=== PATIENT | male | born 1980 | race Caucasian/White ===

== ENCOUNTER 2019-12-17 13:39 | Observation (INO) | payer BC, OTHER ==
[2019-12-17] MEDS ORDERED: fentaNYL 100 MCG/2 ML SDV ONE ×2 (13:45→15:11)
[2019-12-17] MEDS ORDERED: fentaNYL 50 MCG/ML SDV IVPUSH ONE ×2 (13:46→14:29)
[2019-12-17] MEDS ORDERED: Diphtheria,Pertussis(Acell),Tetanus Vaccine 0.5 ML Syringe IM ONE ×2 (13:46→14:34)
[2019-12-17 14:15] LABS: BLOOD UREA NITROGEN,BUN 17 mg/dL (7.0-18.0); CARBON DIOXIDE,CO2 24.4 mmol/L (21.0-32.0); CHLORIDE,CL 104 mmol/L (98-107); GLUCOSE RANDOM 126 mg/dL (74-106); POTASSIUM,K 4.3 mmol/L (3.5-5.1); SODIUM,NA 140 mmol/L (136-148)
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
[2019-12-17] MEDS: Piperacillin/Tazobactam 3.375 GM in Sodium Chloride 0.9% 50 ML IV SCH ×2 (14:27→20:32)
--- NOTE | 2019-12-17 14:30 | CT ---
CT chest Technique: Multiple axial sections were obtained from above the lung apices inferiorly through the lung bases. Intravenous contrast was utilized. Comparison: No prior chest imaging is available. Findings: Mediastinum and hilar region show no adenopathy. No mediastinal hematoma is seen. No pericardial fluid is seen. No axillary adenopathy is seen. Lungs are clear with no acute pulmonary contusion. No pleural effusions or pneumothorax are seen. No acute osseous finding is appreciated. Impression: 1. Nothing acute is appreciated on CT study of the chest. Diagnostic code #1 This report was dictated in MDT
[2019-12-17] MEDS ORDERED: Diphtheria,Pertussis(Acell),Tetanus Vaccine 0.5 ML Syringe ONE (14:32)
--- NOTE | 2019-12-17 14:32 | PCM.PREANE ---
Preanesthetic Assessment - Anesthesia/Transfusion/Family Hx Anesthesia History: No Prior Anesthesia Family History of Anesthesia Reaction: No - Review of Systems General: No Symptoms Pulmonary: No Symptoms Cardiovascular: No Symptoms Gastrointestinal: No Symptoms Neurological: No Symptoms Other: Reports: None - Physical Assessment NPO Status Date: 12/17/19 NPO Status Time: 08:00 ASA Class: 2 Mental Status: Alert & Oriented x3 Airway Class: Mallampati = 2 Dentition: Reports: Broken Tooth/Teeth Lungs: Clear to Auscultation, Normal Respiratory Effort Cardiovascular: Regular Rate, Regular Rhythm - Lab Values: Laboratory Last Values WBC 13.18 K/uL (4.0-11.0) H 12/17/19 13:38 RBC 5.58 M/uL (4.50-5.90) 12/17/19 13:38 Hgb 16.4 g/dL (13.0-17.0) 12/17/19 13:38 Hct 48.8 % (38.0-50.0) 12/17/19 13:38 MCV 87.5 fL (80.0-98.0) 12/17/19 13:38 MCH 29.4 pg (27.0-32.0) 12/17/19 13:38 MCHC 33.6 g/dL (31.0-37.0) 12/17/19 13:38 RDW Std Deviation 41.6 fl (28.0-62.0) 12/17/19 13:38 RDW Coeff of Rolo 13 % (11.0-15.0) 12/17/19 13:38 Plt Count 277 K/uL (150-400) 12/17/19 13:38 MPV 10.70 fL (7.40-12.00) 12/17/19 13:38 Neut % (Auto) 53.6 % (48.0-80.0) 12/17/19 13:38 Lymph % (Auto) 39.2 % (16.0-40.0) 12/17/19 13:38 [place] % (Auto) 5.8 % (0.0-15.0) 12/17/19 13:38 Eos % (Auto) 1.2 % (0.0-7.0) 12/17/19 13:38 Baso % (Auto) 0.2 % (0.0-1.5) 12/17/19 13:38 Neut # (Auto) 7.1 K/uL (1.4-5.7) H 12/17/19 13:38 Lymph # (Auto) 5.2 K/uL (0.6-2.4) H 12/17/19 13:38 [place] # (Auto) 0.8 K/uL (0.0-0.8) 12/17/19 13:38 Eos # (Auto) 0.2 K/uL (0.0-0.7) 12/17/19 13:38 Baso # (Auto) 0.0 K/uL (0.0-0.1) 12/17/19 13:38 Nucleated RBC % 0.0 /100WBC 12/17/19 13:38 Nucleated RBCs # 0 K/uL 12/17/19 13:38 INR 0.97 12/17/19 13:35 APTT 22.8 SEC (18.6-31.3) 12/17/19 13:35 Sodium 140 mmol/L (136-148) 12/17/19 13:35 Potassium 4.3 mmol/L (3.5-5.1) 12/17/19 13:35 Chloride 104 mmol/L (98-107) 12/17/19 13:35 Carbon Dioxide 24.4 mmol/L (21.0-32.0) 12/17/19 13:35 BUN 17 mg/dL (7.0-18.0) 12/17/19 13:35 Creatinine 1.3 mg/dL (0.8-1.3) 12/17/19 13:35 Est Cr Clr Drug Dosing TNP 12/17/19 13:35 Estimated GFR (MDRD) > 60.0 ml/min 12/17/19 13:35 Glucose 126 mg/dL (74-106) H 12/17/19 13:35 Calcium 8.6 mg/dL (8.5-10.1) 12/17/19 13:35 Total Bilirubin 0.6 mg/dL (0.2-1.0) 12/17/19 13:35 AST 24 IU/L (15-37) 12/17/19 13:35 ALT 48 IU/L (14-63) 12/17/19 13:35 Alkaline Phosphatase 93 U/L (46-116) 12/17/19 13:35 Total Protein 8.0 g/dL (6.4-8.2) 12/17/19 13:35 Albumin 4.1 g/dL (3.4-5.0) 12/17/19 13:35 Globulin 3.9 g/dL (2.6-4.0) 12/17/19 13:35 Albumin/Globulin Ratio 1.1 (0.9-1.6) 12/17/19 13:35 Ethyl Alcohol <3 mg/dL 12/17/19 13:35 - Allergies Allergies/Adverse Reactions: Allergies Allergy/AdvReac Type Severity Reaction Status Date / Time No Known Allergies Allergy Verified 12/17/19 13:45 - Blood Blood Available: Yes - Anesthesia Plan Pre-Op Medication Ordered: None - Acknowledgements Anesthesia Type Planned: General Anesthesia Pt an Appropriate Candidate for the Planned Anesthesia: Yes Alternatives and Risks of Anesthesia Discussed w Pt/Guardian: Yes Pt/Guardian Understands and Agrees with Anesthesia Plan: Yes PreAnesthesia Questionnaire - CURRENT (IN HOUSE) MEDS Current Meds: Current Medications Piperacillin Sod/Tazobactam (Sod 3.375 gm/ Sodium Chloride) 50 mls @ 100 mls/ hr IV Q6H JAYASHREE Last Admin: 12/17/19 14:27 Dose: 100 mls/hr Discontinued Medications Diphtheria/Tetanus/Acell Pertussis (Boostrix) 0.5 ml IM .ONCE ONE Stop: 12/17/19 13:47 Last Admin: 12/17/19 14:28 Dose: Not Given Fentanyl (Fentanyl) 100 mcg IVPUSH ONETIME ONE Stop: 12/17/19 13:47 Last Admin: 12/17/19 14:28 Dose: Not Given Fentanyl (Sublimaze) Confirm Administered Dose 100 mcg .ROUTE .STK-MED ONE Stop: 12/17/19 13:46 Last Admin: 12/17/19 14:28 Dose: Not Given Fentanyl (Fentanyl) 100 mcg IVPUSH ONETIME ONE Stop: 12/17/19 14:30 Last Admin: 12/17/19 13:50 Dose: 100 mcg
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
--- NOTE | 2019-12-17 14:34 | CT ---
CT cervical spine Technique: Multiple axial sections were obtained from above C1 inferiorly to the bottom of T2. Reconstructed sagittal and coronal images were obtained. Comparison: No prior intracranial imaging is available. Findings: Minimal degenerative change between the dens and anterior arch of C1 is seen. Mild disc space narrowing is noted at C5-6 with mild anterior osteophytes and minimal posterior osteophytes. No fracture is identified. No bony central or bony neural foraminal stenosis is seen. No abnormal subluxation is seen. No traumatic disc herniation is identified. Impression: 1. Mild degenerative change. 2. Nothing acute is appreciated on CT study of the cervical spine. Diagnostic code #1 This report was dictated in MDT
[2019-12-17] MEDS ORDERED: Iopamidol 755 MG/ML 500 ML Multipack Bottle IVPUSH STA (14:36)
--- NOTE | 2019-12-17 14:39 | CT ---
Head CT Technique: Multiple axial sections through the brain were obtained. Intravenous contrast was not utilized. Comparison: No prior intracranial imaging is available. Findings: Ventricles along with basal cisterns and sulci over the convexities are within normal limits for the patient's age. No abnormal parenchymal densities are seen. No evidence of intracranial hemorrhage. No midline shift or mass-effect is seen. Bone window settings were reviewed. Mild chronic appearing sinus disease is seen within the inferior maxillary sinuses on both sides. Mastoid sinuses show nothing acute. No acute calvarial abnormality is appreciated. Impression: 1. Probable chronic sinus findings within the inferior maxillary sinuses. 2. No acute intracranial abnormality is identified. Diagnostic code #2 This report was dictated in MDT
--- NOTE | 2019-12-17 14:40 | CT ---
CT abdomen and pelvis Technique: Multiple axial sections were obtained from above the dome of the diaphragm inferiorly through the pubic symphysis. Intravenous contrast was utilized. No oral contrast has been given. Comparison: No prior CT abdomen or pelvis exam is available. Findings: Liver shows no discrete abnormality. Spleen appears within normal limits. Adrenal glands show no nodule. Pancreas shows no discrete abnormality. Gallbladder contains no calcified gallstones. Kidneys show symmetric contrast enhancement without hydronephrosis. Several minimal low density lesions are noted within the cortex of the right kidney which are too small to characterize by Hounsfield unit measurements but most likely represent minimal cysts. Aorta shows no aneurysm. No retroperitoneal adenopathy or mesenteric abnormalities are seen. Soft tissue injury is noted within the right anterolateral and anterior abdominal wall with soft tissue air, skin injury and subcutaneous contusion. No pelvic mass or adenopathy is seen. No free fluid is seen. No abdominal wall hematoma is seen. Bone window settings were reviewed. No acute osseous finding is appreciated. Impression: 1. Skin injury and subcutaneous air within the fat of the lower right anterolateral and anterior abdominal wall. 2. No acute intra-abdominal abnormality is seen. Diagnostic code #3 This report was dictated in MDT
--- NOTE | 2019-12-17 14:43 | CT ---
CT lumbar spine Technique: Multiple axial sections through the lumbar spine were obtained. Reconstructed coronal and sagittal images were obtained. Comparison: No prior lumbar spine imaging is available. Findings: Vertebral body heights and disc spaces are maintained. No fracture is appreciated. No abnormal subluxation is seen. No central canal stenosis or neural foraminal stenosis is seen. No traumatic disc herniation is appreciated. Impression: 1. Nothing acute is appreciated on CT study of the lumbar spine. Diagnostic code #1 This report was dictated in MDT
--- NOTE | 2019-12-17 14:43 | CT ---
CT thoracic spine Technique: Multiple axial sections through the thoracic spine were obtained. Reconstructed coronal and sagittal images were obtained. Comparison: No prior thoracic spine imaging. Findings: Vertebral body heights and disc spaces are maintained. No fracture is appreciated. No bony central canal stenosis or bony neural foraminal stenosis is seen. No abnormal subluxation is seen Impression: 1. Nothing acute is appreciated on CT study of the thoracic spine. Diagnostic code #1 This report was dictated in MDT
[2019-12-17] MEDS ORDERED: Lactated Ringers 1,000 ML IV SCH (15:00)
--- NOTE | 2019-12-17 15:05 | CR ---
Chest: Supine view of the chest was obtained. Comparison: No prior chest x-rays available, prior chest CT performed earlier on the same day is available. Heart size and mediastinum are normal. Lungs are clear with no acute parenchymal change. Bony structures are grossly intact. Impression: 1. Nothing acute is seen on supine chest x-ray. Diagnostic code #1 This report was dictated in MDT
[2019-12-17] MEDS ORDERED: Propofol 200 MG/20 ML SDV ONE (15:11)
[2019-12-17] MEDS ORDERED: Ondansetron 4 MG/2 ML SDV ONE (15:11)
[2019-12-17] MEDS ORDERED: ceFAZolin 1 GM Vial ONE (15:12)
[2019-12-17] MEDS ORDERED: HYDROmorphone 2 MG/ML Syringe ONE (15:13)
[2019-12-17] MEDS ORDERED: Glycopyrrolate 0.2 MG/ML SDV ONE (15:14)
--- NOTE | 2019-12-17 15:14 | CR ---
Left elbow: 2 views of the left elbow were obtained. Comparison: No prior elbow study. Joint spaces are preserved. No joint effusion is seen. No acute fracture or other bony abnormality is identified. Impression: 1. Nothing acute is appreciated on 2 view left elbow study. Diagnostic code #1 This report was dictated in MDT
--- NOTE | 2019-12-17 15:15 | CR ---
Left forearm: 2 views of the left forearm were obtained. No discrete fracture or other bony abnormality is seen. Impression: 1. No bony abnormality seen on left forearm study. Diagnostic code #1 This report was dictated in MDT
--- NOTE | 2019-12-17 15:15 | CR ---
Bilateral wrists: 2 views of both wrists were obtained. Comparison: No previous wrist exam. Joint spaces within both wrists are maintained. No acute fracture, dislocation or other bony abnormality is seen. Impression: 1. No acute bony abnormality is identified on 2 view bilateral wrist exam. Diagnostic code #1 This report was dictated in MDT
[2019-12-17] MEDS ORDERED: Sugammadex Sodium 200 MG/2 ML VIAL ONE (15:20)
[2019-12-17] MEDS ORDERED: Midazolam 1 MG/ML 2 ML SDV ONE (15:38)
[2019-12-17] MEDS ORDERED: Ketorolac 30 MG/ML SDV ONE (16:30)
[2019-12-17] MEDS ORDERED: HYDROmorphone 1 MG/ML Syringe IVPUSH ONE (16:33)
[2019-12-17] MEDS ORDERED: Sodium Chloride 0.9% 2.5 ML Syringe FLUSH PRN (16:57)
[2019-12-17] MEDS ORDERED: Ondansetron 4 MG/2 ML SDV IVPUSH PRN (16:57)
[2019-12-17] MEDS ORDERED: diphenhydrAMINE 50 MG/ML SDV IVPUSH PRN (16:57)
[2019-12-17] MEDS ORDERED: Sodium Chloride 0.9% 10 ML Syringe FLUSH PRN (16:57)
[2019-12-17] MEDS ORDERED: Sodium Chloride 0.9% 10 ML SDV IV PRN (16:57)
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
--- NOTE | 2019-12-17 17:32 | PCM.POSTAN ---
POST ANESTHESIA ASSESSMENT - MENTAL STATUS Mental Status: Alert - VITAL SIGNS Vital Signs: Last Vital Signs Temp 36.3 C 12/17/19 16:50 Pulse 75 12/17/19 17:28 Resp 12 12/17/19 17:28 BP 134/90 12/17/19 17:28 Pulse Ox 99 12/17/19 17:28 - RESPIRATORY Respiratory Status: Respiratory Rate WNL - CARDIOVASCULAR CV Status: Pulse Rate WNL - GASTROINTESTINAL GI Status: No Symptoms - PAIN Pain Score: 2 - POST OP HYDRATION Hydration Status: Adequate & Stable - OBSERVATIONS Free Text/Narrative:: Doing well. Pain well controlled. To floor.
[2019-12-17] MEDS: HYDROmorphone 1 MG/ML Syringe IVPUSH PRN ×2 (19:16→23:25)
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
[2019-12-18] MEDS: Piperacillin/Tazobactam 3.375 GM in Sodium Chloride 0.9% 50 ML IV SCH ×3 (00:59→14:40)
[2019-12-18] MEDS: HYDROmorphone 1 MG/ML Syringe IVPUSH PRN ×2 (05:10→09:20)
[2019-12-18 06:23] LABS: BLOOD UREA NITROGEN,BUN 15 mg/dL (7.0-18.0); CARBON DIOXIDE,CO2 26.9 mmol/L (21.0-32.0); CHLORIDE,CL 104 mmol/L (98-107); GLUCOSE RANDOM 100 mg/dL (74-106); POTASSIUM,K 3.8 mmol/L (3.5-5.1); SODIUM,NA 139 mmol/L (136-148)
--- NOTE | 2019-12-18 07:23 | PCM48HPAN ---
Post Anesthesia Note - EVALUATION WITHIN 48HRS OF ANESTHETIC Vital Signs in Normal Range: Yes Patient Participated in Evaluation: Yes Respiratory Function Stable: Yes Airway Patent: Yes Cardiovascular Function Stable: Yes Hydration Status Stable: Yes Pain Control Satisfactory: Yes (Sore but doing well. Using analgesics.) Nausea and Vomiting Control Satisfactory: Yes Mental Status Recovered: Yes Vital Signs: Last Vital Signs Temp 37.2 C 12/18/19 04:29 Pulse 78 12/18/19 04:29 Resp 18 12/18/19 04:29 BP 124/82 12/18/19 04:29 Pulse Ox 99 12/18/19 04:29 - COMMENTS/OBSERVATIONS Free Text/Narrative:: Doing well. Will redo today
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
[2019-12-18] MEDS ORDERED: Midazolam 1 MG/ML 2 ML SDV ONE (12:06)
[2019-12-18] MEDS ORDERED: Propofol 200 MG/20 ML SDV ONE (12:06)
[2019-12-18] MEDS ORDERED: fentaNYL 100 MCG/2 ML SDV ONE (12:06)
[2019-12-18] MEDS ORDERED: Lidocaine 2% 5 ML SDV ONE (12:07)
[2019-12-18] MEDS ORDERED: Ondansetron 4 MG/2 ML SDV ONE (12:07)
[2019-12-18] MEDS ORDERED: Glycopyrrolate 0.2 MG/ML SDV ONE (12:07)
[2019-12-18] MEDS ORDERED: Acetaminophen 1,000 MG in Premix Bag 1 BAG IV PRN (13:23)
[2019-12-18] MEDS ORDERED: fentaNYL 100 MCG/2 ML SDV IVPUSH PRN (13:23)
[2019-12-18] MEDS ORDERED: Ketorolac 30 MG/ML SDV ONE (13:53)
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
--- NOTE | 2019-12-18 14:41 | PCM.POSTAN ---
POST ANESTHESIA ASSESSMENT - VITAL SIGNS Vital Signs: Last Vital Signs Temp 36.4 C 12/18/19 13:51 Pulse 70 12/18/19 13:06 Resp 14 12/18/19 14:21 BP 114/79 12/18/19 14:21 Pulse Ox 98 12/18/19 14:21 - RESPIRATORY Respiratory Status: Respiratory Rate WNL - CARDIOVASCULAR CV Status: Pulse Rate WNL - GASTROINTESTINAL GI Status: No Symptoms - POST OP HYDRATION Hydration Status: Adequate & Stable
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
--- NOTE | 2019-12-18 14:50 | PCM.SN.2 ---
- Free Text/Narrative Note: Patient has significant anxiety regarding dressing changes. I visited with his mother over the telephone regarding this. She is willing to perform daily dressing changes on the patients right palm, left palm and left forearm. Plan will be to have her come to the hospital tomorrow so that she and I can perform a dressing change together on his arms. Will order silvadene cream to apply to pereira. He should be able to discharge home after that. The wound vac will be switched to a portable device that he can take home with himself. I have contacted my nurse who will contact our wound care team to get supplies order for outpatient care. The patient will come back on to undergo another dressing change and wound vac change under anesthesia in the OR. After this he can have dressing changes to his hands performed at home and his wound vac will be changed at clinic or with our wound care team/PT at the [facility]. This will be done on Tuesday next week. Will work on scheduling the OR time on and the wound vac therapy as an outpatient.
[2019-12-18] MEDS: Polyethylene Glycol 3350 Powder 17 GM Packet PO SCH (15:33)
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
[2019-12-18] MEDS: Acetaminophen/oxyCODONE 325-5 MG Tab PO PRN ×2 (16:58→21:30)
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
[2019-12-18] MEDS: Sulfamethoxazole/Trimethoprim 800-160 MG Tab PO SCH (21:08)
[2019-12-19] MEDS: Acetaminophen/oxyCODONE 325-5 MG Tab PO PRN ×3 (03:01→12:23)
--- NOTE | 2019-12-19 07:23 | PCM48HPAN ---
Post Anesthesia Note - EVALUATION WITHIN 48HRS OF ANESTHETIC Vital Signs in Normal Range: Yes Patient Participated in Evaluation: Yes Respiratory Function Stable: Yes Airway Patent: Yes Cardiovascular Function Stable: Yes Hydration Status Stable: Yes Pain Control Satisfactory: Yes Nausea and Vomiting Control Satisfactory: Yes Mental Status Recovered: Yes Vital Signs: Last Vital Signs Temp 37.1 C 12/19/19 04:00 Pulse 79 12/19/19 04:00 Resp 17 12/19/19 04:00 BP 124/82 12/19/19 04:00 Pulse Ox 95 12/19/19 04:00
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
[2019-12-19] MEDS: Sulfamethoxazole/Trimethoprim 800-160 MG Tab PO SCH (08:20)
[2019-12-19] MEDS: Polyethylene Glycol 3350 Powder 17 GM Packet PO SCH (08:21)
--- NOTE | 2019-12-19 08:39 | PCM.SN.2 ---
- Free Text/Narrative Note: Dressing change instructions: Hands: 1) Remove old dressings. Ok to shower and get soap and water on the wounds. Pat dry with a clean towel afterwards. 2) Place silvadene cream over pereira on palms. Just need a thin layer of cream. No need to apply a thick layer. 3) Cover the areas with xeroform guaze (yellow/iodine impregnated non-stick dressing) 4) Wrap hands with Kerlix gauze then cover with mike wrap to keep dressings clean. Left arm: 1) Remove old dressings. Ok to shower and get soap and water on the wounds. Pat dry with a clean towel afterwards. 2) Apply a thin layer of neosporin or bacitracin 3) Cover the areas with xeroform guaze (yellow/iodine impregnated non-stick dressing) 4) Wrap hands with Kerlix gauze then cover with mike wrap to keep dressings clean. Abdominal Wound: You have a wound vac in place. You will go home with a wound vac machine. We will change this tomorrow in the OR. After that, your next wound vac change is scheduled for Tuesday with physical therapy. This is in the building on the third floor. The machine should be scheduled to apply 120mmHg continuous suction. Change the canister if it gets full. Call my office on week or the ER on weekends if having technical issues with the machine.
[2019-12-19] MEDS ORDERED: Silver Sulfadiazine 1% Crm 50 GM Tube TOP SCH (09:00)
[2019-12-19] MEDS ORDERED: Bacitracin Oint 1 GM U/D Packet TOP PRN (11:50)
[2019-12-20] MEDS ORDERED: Lidocaine 2% 5 ML SDV ONE (12:24)
[2019-12-20] MEDS ORDERED: Ondansetron 4 MG/2 ML SDV ONE (12:24)
[2019-12-20] MEDS ORDERED: fentaNYL 250 MCG/5 ML SDV ONE (12:25)
[2019-12-20] MEDS ORDERED: Midazolam 1 MG/ML 2 ML SDV ONE ×2 (12:25→13:15)
[2019-12-20] MEDS ORDERED: Propofol 200 MG/20 ML SDV ONE ×2 (12:25→12:51)
[2019-12-20] MEDS ORDERED: Ketorolac 30 MG/ML SDV ONE (13:31)
== END 2019-12-19 14:40 | disposition home or self-care (01) ==
LOC: MW.ED 13:39 → MW.MS 14:59
PROVIDERS: ADMIT Surgery; ATTEND Surgery
DX: T23.252A Burn of second degree of left palm, initial encounter (principal); T23.251A Burn of second degree of right palm, initial encounter; S31.119A Laceration without foreign body of abdominal wall, unspecified quadrant without penetration into peritoneal cavity, initial encounter; S50.812A Abrasion of left forearm, initial encounter; Z23 Encounter for immunization; V87.7XXA Person injured in collision between other specified motor vehicles (traffic), initial encounter; Z20.828 Contact with and (suspected) exposure to other viral communicable diseases
CPT/HCPCS: 15004; 36415; 70450; 71045; 71260; 72125; 73070; 73090; 73100; 74177; 80053; 80305; 80307; 81003; 85025; 85610; 85730; 86850; 86900; 86901; 87635; 90471; 90715; 96361; 96374; 96375; 99291; A9270; G0378; J0131; J0690; J1170; J1885; J2001; J2250; J2405; J2543; J2704; J3010; J3490; J7050; J7120; Q9967; 00400; 72128-26; 72131-26; 99285; U0002

== ENCOUNTER → 2019-12-20 | Day surgery (SDC) | payer BC ==
[~2019-12-20] MED LIST: Lactated Ringers 1,000 ML IV SCH; fentaNYL 100 MCG/2 ML SDV IVPUSH PRN; fentaNYL 100 MCG/2 ML SDV ONE; fentaNYL 50 MCG/ML SDV IVPUSH ONE
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
--- NOTE | 2019-12-20 14:10 | PCM.POSTAN ---
POST ANESTHESIA ASSESSMENT - MENTAL STATUS Mental Status: Alert, Oriented - VITAL SIGNS Vital Signs: Last Vital Signs Temp 36.2 C 12/20/19 13:38 Pulse 64 12/20/19 14:03 Resp 14 12/20/19 14:03 BP 104/71 12/20/19 14:03 Pulse Ox 96 12/20/19 14:03 - RESPIRATORY Respiratory Status: Respiratory Rate WNL, Airway Patent, O2 Saturation Stable - CARDIOVASCULAR CV Status: Pulse Rate WNL, Blood Pressure Stable - GASTROINTESTINAL GI Status: No Symptoms - PAIN Pain Score: 5 - POST OP HYDRATION Hydration Status: Adequate & Stable
--- NOTE | 2019-12-20 14:38 | PCM48HPAN ---
Post Anesthesia Note - EVALUATION WITHIN 48HRS OF ANESTHETIC Vital Signs in Normal Range: Yes Patient Participated in Evaluation: Yes Respiratory Function Stable: Yes Airway Patent: Yes Cardiovascular Function Stable: Yes Hydration Status Stable: Yes Pain Control Satisfactory: Yes Nausea and Vomiting Control Satisfactory: Yes Mental Status Recovered: Yes Vital Signs: Last Vital Signs Temp 36.2 C 12/20/19 13:38 Pulse 76 12/20/19 14:08 Resp 12 12/20/19 14:08 BP 107/80 12/20/19 14:08 Pulse Ox 96 12/20/19 14:08
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
== END | disposition home or self-care (01) ==
LOC: MW.SDS 11:11
PROVIDERS: ATTEND Surgery
DX: T23.252D Burn of second degree of left palm, subsequent encounter (principal); T23.251D Burn of second degree of right palm, subsequent encounter; T31.0 Burns involving less than 10% of body surface; S31.113D Laceration without foreign body of abdominal wall, right lower quadrant without penetration into peritoneal cavity, subsequent encounter; S50.812D Abrasion of left forearm, subsequent encounter; Z68.33 Body mass index [BMI] 33.0-33.9, adult; E66.9 Obesity, unspecified; V49.60XD Unspecified car occupant injured in collision with unspecified motor vehicles in traffic accident, subsequent encounter; Y92.410 Unspecified street and highway as the place of occurrence of the external cause
CPT/HCPCS: 16020; J3010; J7120

== ENCOUNTER 2020-01-07 15:38 | Emergency (ER) | payer OTHER, BC ==
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
== END 2020-01-07 16:43 | disposition home or self-care (01) ==
LOC: MW.ED 15:38
DX: Z48.817 Encounter for surgical aftercare following surgery on the skin and subcutaneous tissue (principal); F41.9 Anxiety disorder, unspecified; F32.9 Major depressive disorder, single episode, unspecified; E66.9 Obesity, unspecified; Z68.31 Body mass index [BMI] 31.0-31.9, adult; F17.210 Nicotine dependence, cigarettes, uncomplicated
CPT/HCPCS: 36415; 85025; 99282; 99283

== ENCOUNTER 2021-09-06 15:17 | Emergency (ER) | payer BC ==
[2021-09-06] MEDS ORDERED: Metoclopramide 10 MG Tab PO ONE (15:40)
[2021-09-06] MEDS ORDERED: Ketorolac 30 MG/ML SDV IM ONE (15:40)
[2021-09-06 16:32] LABS: BLOOD UREA NITROGEN,BUN 22 mg/dL (7.0-18.0); CARBON DIOXIDE,CO2 26.7 mmol/L (21.0-32.0); CHLORIDE,CL 103 mmol/L (98-107); GLUCOSE RANDOM 114 mg/dL (74-106); POTASSIUM,K 4.1 mmol/L (3.5-5.1); SODIUM,NA 140 mmol/L (136-148)
== END 2021-09-06 18:05 | disposition home or self-care (01) ==
LOC: MW.ED 15:17
DX: R51.9 Headache, unspecified (principal); I10 Essential (primary) hypertension; E66.9 Obesity, unspecified; Z68.37 Body mass index [BMI] 37.0-37.9, adult; Z72.0 Tobacco use
CPT/HCPCS: 36415; 71045; 80053; 84484; 85025; 93005; 96372; 99284; A9270; J1885